=== PATIENT | female | born 1990 | race Hispanic/Latino ===

== ENCOUNTER 2024-03-18 11:07 | Emergency (ER) | payer OTHER ==
[~2024-03-18] VITALS: Ht 152.4 cm; Wt 57.8 kg
[2024-03-18] MEDS: ASPIRIN 81 MG CHEW TAB PO ONE (14:21)
[2024-03-18 14:26] VITALS: TEMP 97.8
[2024-03-18 15:11] VITALS: PULSE 83; RESP 20; O2SAT 99
== END 2024-03-18 15:17 | disposition home or self-care (01) ==
LOC: FSED 11:19
DX: R00.2 Palpitations (principal); R07.89 Other chest pain; R73.03 Prediabetes
CPT/HCPCS: 80053; 81025; 84484; 85025; 93005; 99284

== ENCOUNTER 2024-04-17 06:43 | Emergency (ER) | payer OTHER ==
[~2024-04-17] VITALS: Ht 152.4 cm; Wt 57.6 kg
[2024-04-17 06:51] VITALS: TEMP 98
[2024-04-17] MEDS: SODIUM CHLORIDE 0.9% 1000ML 1,000 ML IV STA (07:18)
[2024-04-17 07:20] LABS: BASOPHILS % 0.4 % (0.0-1.0); EOSINOPHILS # (AUTO) 0.1 (0.0-0.4); HEMATOCRIT 40.6 % (34.2-44.1); HEMOGLOBIN 13.4 g/dL (12.0-16.0); LYMPHOCYTES % 25.6 % (18.0-39.1); MEAN CORPUSCULAR HEMOGLOBIN 26.8 pg (28-32); MEAN CORPUSCULAR VOLUME 81.2 fL (81-99); MONOCYTES # (AUTO) 0.6 (0.2-0.8); MONOCYTES % 6.9 % (4.4-11.3); NEUTROPHILS # (AUTO) 5.2 (2.1-6.9); PLATELET COUNT 239 x10e3/uL (140-360); RED CELL DISTRIBUTION WIDTH 13.7 % (11.7-14.4); WHITE BLOOD COUNT 7.93 x10e3/uL (4.8-10.8)
[2024-04-17 07:42] LABS: ALBUMIN/GLOBULIN RATIO 1.1 (0.8-2.0); ANION GAP 13.1 mmol/L (8-16); BILIRUBIN,TOTAL 0.3 mg/dL (0.2-1.2); CALCIUM 9.7 mg/dL (8.4-10.2); CREATININE, SERUM 0.81 mg/dL (0.57-1.11); POTASSIUM 4.1 mmol/L (3.5-5.1); TOTAL PROTEIN 7.7 g/dL (6.5-8.1)
[2024-04-17] MEDS ORDERED: IOPAMIDOL 370 MG/ML 100 ML INFUS..BTL INJ ONE (08:20)
[2024-04-17] MEDS: DICYCLOMINE HCL 20 MG/2 ML VIAL IM ONE (08:58)
[2024-04-17 09:10] VITALS: PULSE 69; RESP 16; O2SAT 100
[2024-04-17 09:27] LABS: BILIRUBIN,URINE NEGATIVE (NEGATIVE); CLARITY,URINE SL CLOUDY (CLEAR); COLOR,URINE YELLOW (YELLOW); GLUCOSE, URINE NEGATIVE (NEGATIVE); KETONES,URINE NEGATIVE (NEGATIVE); LEUKOCYTE ESTERASE ,URINE NEGATIVE (NEGATIVE); NITRITE,URINE NEGATIVE (NEGATIVE); PH,URINE 5.5 (5 - 7); PROTEIN,URINE DIPSTICK NEGATIVE (NEGATIVE); URINE UROBILINOGEN 0.2 mg/dL (0.2 - 1)
[2024-04-17 09:41] LABS: BACTERIA,URINE MODERATE /HPF; EPITHELIAL CELLS,URINE MODERATE /LPF; RBC,URINE 0-5 /HPF (0-5)
[2024-04-17] MEDS ORDERED: AMOX TR-K CLV1 EAC2 PO (10:38)
[2024-04-17] MEDS ORDERED: DICYCLOMINE HCL20 MG PO (10:39)
== END 2024-04-17 11:11 | disposition home or self-care (01) ==
LOC: ER 06:51
DX: R10.30 Lower abdominal pain, unspecified (principal); K52.9 Noninfective gastroenteritis and colitis, unspecified; R73.03 Prediabetes
CPT/HCPCS: 36415; 74177; 80053; 81001; 84702; 85025; 99284; J0500; J7030; Q9967